=== PATIENT | female | born 1965 | race Caucasian/White ===

== ENCOUNTER 2017-04-12 01:24 | Emergency (ER) | payer OTHER ==
[~2017-04-12] VITALS: Ht 160 cm; Wt 121.6 kg
[2017-04-12 01:47] VITALS: TEMP 36.8; Ht 160 cm; Wt 121.6 kg
[2017-04-12] MEDS ORDERED: ONDANSETRON INJ 2 MG/ML 2 ML VIAL IV STA (01:53)
[2017-04-12] MEDS ORDERED: MoRPHine SULFATE 4 MG/ML 1 ML CARP\\VIAL IV ONE (02:00)
[2017-04-12] MEDS ORDERED: SODIUM CHLORIDE 0.9% 1000ML 1,000 ML IV ONE ×2 (02:00→04:30)
[2017-04-12] MEDS ORDERED: ATEN-173 PO (02:41)
[2017-04-12] MEDS ORDERED: LEVO25TA5 PO (02:41)
[2017-04-12] MEDS ORDERED: SERT50TA PO (02:42)
[2017-04-12] MEDS ORDERED: KETO10TA PO (02:43)
[2017-04-12 02:46] LABS: BASO % 0.4 %; BASO ABS # 0.03 K/uL (0-0.2); COMPLETE YES; EOS % 0.7 %; HEMATOCRIT 39.9 % (37-47); IG% 0.5 %; LYMPH % 8.7 %; LYMPH ABS # 0.74 K/uL (1.2-3.4); MEAN CELL VOLUME 91.7 fL (80-100); MEAN CORPUSCULAR HEMOGLOBIN 31.5 pg (25-34); MEAN CORPUSCULAR HGB CONC 34.3 g/dl (32-36); MONO % 8.4 %; NEUT % 81.3 %; PLATELET COUNT 193 K/uL (130-400); RED BLOOD COUNT 4.35 M/uL (4.2-5.4); WHITE BLOOD COUNT 8.54 K/uL (4.8-10.8)
[2017-04-12 03:04] LABS: BUN/CREATININE RATIO 14.9 (10-20); CALCIUM 8.9 mg/dl (8.5-10.1); CREATININE 0.79 mg/dl (0.60-1.20); POTASSIUM 3.8 mmol/L (3.5-5.1)
[2017-04-12 04:23] LABS: URINE APPEARANCE CLEAR (CLEAR); URINE BILIRUBIN NEG (NEG); URINE COLOR YELLOW; URINE NITRITE NEG (NEG); URINE PH 5.5 (4.5-7.5); URINE SPECIFIC GRAVITY 1.018 (1.000-1.030); UROBILINOGEN NEG (NEG); ZZUR CULT IF INDIC CLEAN CATCH NO
[2017-04-12 04:31] LABS: MANUAL MICROSCOPIC REQUIRED? NO; REVIEW REQ? NO
[2017-04-12] MEDS ORDERED: ONDA4TAB10 SL (04:51)
[2017-04-12] MEDS ORDERED: OXYC1TAB3 PO (04:51)
[2017-04-12] MEDS ORDERED: TAMS0.4C38 PO (04:51)
[2017-04-12] MEDS ORDERED: ONDANSETRON HOME PACK 4MG OD TAB PO ONE (05:00)
[2017-04-12] MEDS ORDERED: OXYCODONE IR HOME PACK PO ONE (05:00)
[2017-04-12 05:10] VITALS: BP 142/77; PULSE 76; O2SAT 97
--- NOTE | 2017-04-12 07:30 | DIAGNOSTIC IMAGING REPORT ---
ABD/PELVIS NO IV OR ORAL CONT HISTORY: 52 years-old Female low abd pain acute lower abdominal pain with history of kidney stones. COMPARISON: None available TECHNIQUE: Multiple axial CT images of the abdomen and pelvis were obtained without contrast. A dose lowering technique was used consistent with the principals of HAMLET. FINDINGS: The lung bases are generally clear. There is no pneumoperitoneum. Imaged inferior cardiac chambers are unremarkable. There is hepatomegaly with hepatic steatosis. The spleen, gallbladder, pancreas and right adrenal gland are unremarkable. There is nodular thickening of the left adrenal gland suggesting hyperplasia. There is a 2 mm calcification within the left hemipelvis seen on image 356 of series 3 which is in close proximity to the distal left ureter. No significant hydroureter or hydronephrosis identified. This appears to be slightly anterior to the distal left ureter favoring a phlebolith. No definite renal calculi or hydronephrosis identified. There are additional phleboliths of the pelvis noted. Uterus and adnexa are unremarkable. Abdominal aorta is normal in course and caliber. No bulky retroperitoneal adenopathy. No bowel obstruction or focal bowel wall thickening. Colonic diverticulosis without acute diverticulitis. The appendix appears normal. Diastases recti noted. Small fat filled periumbilical hernia is noted, diastases 1.6 cm. Patient obesity is noted. Soft tissues are otherwise unremarkable. The bones appear intact. Multilevel degenerative changes are present. Endplate irregularity and sclerosis at L4-L5 is likely degenerative related. IMPRESSION: 1. 2 mm calcification of the left hemipelvis in close proximity to the distal left ureter is favored to reflect a phlebolith with a distal left ureteral calculus thought to be less likely as there is no evidence of associated obstructive uropathy or inflammatory stranding. 2. No definite renal calculi or hydronephrosis. 3. Normal appendix. 4. Colonic diverticulosis without diverticulitis. 5. Endplate irregularity and sclerosis at L4-L5 is favored to reflect degenerative changes. The above report was generated using voice recognition software. It may contain grammatical, syntax or spelling errors. Electronically signed by: Carlos Harrell M.D. 04/12/2017 7:29 AM Dictated Date/Time: 04/12/2017 7:22 AM
--- NOTE | 2017-04-13 07:32 | EMERGENCY ROOM VISIT NOTE ---
History First contact with patient: 01:42 Chief Complaint: ABDOMINAL PAIN Stated Complaint: ABDOMINAL PAIN Nursing Triage Summary: woke up tonight with severe abd pain, more right side than left. also had N/V/D and period of dizziness. states she felt slightly better after BM before ems arrived. states she's had food poisoning before and this feels similar History of Present Illness The patient is a 52 year old female who presents to the Emergency Room with complaints of left-sided abdominal pain, nausea, and vomiting that began acutely tonight. The patient states that her pain woke her from sleep. She did have a normal bowel movement after waking up and states this did improve her symptoms. The patient states her pain is a dull 5/10 with episodes that increase to an 8/10. She has not taken anything [id number] for her symptoms. She has not had similar episodes in the past. She does arrive via EMS. Review of Systems More than 10 systems were reviewed and otherwise negative with the exception of history of present illness. Past Medical/Surgical History No pertinent chronic medical disease Family History No pertinent family history Social History Smoking Status: Never Smoker Housing Status: lives with family Current/Historical Medications Scheduled Atenolol (Tenormin), 25 MG PO DAILY Levothyroxine Sodium (Levothyroxine Sodium), Unknown Dose PO DAILY Ondasetron Odt (Zofran Odt), 4 MG SL Q6H Oxycodone Immediate Rel Tab (Roxicodone Ir), 1-2 TAB PO Q6 Sertraline (Zoloft), 50 MG PO DAILY Tamsulosin Hcl (Flomax), 0.4 MG PO DAILY Scheduled PRN Ketorolac (Toradol), 10 MG PO DIRECTED PRN for Pain Allergies Uncoded Allergies: SULFA (Allergy, Unknown, unknown, 04/12/17) Physical Exam Vital Signs Date Time Temp Pulse Resp B/P (MAP) Pulse Ox O2 Delivery O2 Flow Rate FiO2 04/12/17 05:10 76 20 142/77 97 Room Air 04/12/17 04:25 94 04/12/17 04:15 82 15 93 Room Air 04/12/17 03:45 86 17 96 04/12/17 03:31 137/75 04/12/17 03:30 85 16 96 04/12/17 03:28 Nasal Cannula 2.0 04/12/17 03:28 97 Nasal Cannula 2.0 04/12/17 03:25 90 18 04/12/17 03:24 89 19 87 Room Air 04/12/17 03:19 139/80 04/12/17 01:47 36.8 93 18 134/76 95 Room Air 04/12/17 01:39 92 16 94 Room Air 04/12/17 01:35 91 04/12/17 01:27 134/76 Physical Exam VITALS: Vitals are noted on the nurse's note and reviewed by myself. Vital signs stable. GENERAL: Well-developed, well-nourished, white female, who is in no acute distress and resting comfortably. Patient is cooperative with the examination. HEART: Regular rate and rhythm without murmurs gallops or rubs. LUNGS: Clear to auscultation bilaterally without wheezes, rales or rhonchi. No retractions or accessory muscle use. ABDOMEN: Positive normal bowel sounds x 4. Soft, nontender, without masses or organomegaly. No guarding or rebound tenderness. No CVA tenderness. MUSCULOSKELETAL: No muscle atrophy, erythema, or edema noted. Full range of motion without joint tenderness in all extremities. NEURO: Patient was alert and oriented to person place and time. CN II through XII grossly intact. Medical Decision & Procedures ER Provider Diagnostic Interpretation: Preliminary Findings Only See Final Report For Complete Findings CT ABDOMEN & PELVIS Without Contrast: Impression: 2 mm calculus within distal left ureter (2-72). No significant hydroureteronephrosis. Additional findings: Lower thorax is unremarkable. Hepatic steatosis. Gallbladder, spleen, pancreas and adrenal glands are unremarkable. Kidneys and urinary bladder are unremarkable. Uterus and adnexa are unremarkable. Appendix is unremarkable. Noninflamed colonic diverticulosis. No acute osseous abnormality. Laboratory Results 04/12/17 02:14 Red Blood Count 4.35, Mean Corpuscular Volume 91.7, Mean Corpuscular Hemoglobin 31.5, Mean Corpuscular Hemoglobin Concent 34.3, Mean Platelet Volume 11.0, Neutrophils (%) (Auto) 81.3, Lymphocytes (%) (Auto) 8.7, Monocytes (%) (Auto) 8.4, Eosinophils (%) (Auto) 0.7, Basophils (%) (Auto) 0.4, Neutrophils # (Auto) 6.95, Lymphocytes # (Auto) 0.74, Monocytes # (Auto) 0.72, Eosinophils # (Auto) 0.06, Basophils # (Auto) 0.03 04/12/17 02:14 Test 04/12/17 02:14 04/12/17 04:05 White Blood Count 8.54 K/uL (4.8-10.8) Red Blood Count 4.35 M/uL (4.2-5.4) Hemoglobin 13.7 g/dL (12.0-16.0) Hematocrit 39.9 % (37-47) Mean Corpuscular Volume 91.7 fL (80-100) Mean Corpuscular Hemoglobin 31.5 pg (25-34) Mean Corpuscular Hemoglobin Concent 34.3 g/dl (32-36) Platelet Count 193 K/uL (130-400) Mean Platelet Volume 11.0 fL (7.4-10.4) Neutrophils (%) (Auto) 81.3 % Lymphocytes (%) (Auto) 8.7 % Monocytes (%) (Auto) 8.4 % Eosinophils (%) (Auto) 0.7 % Basophils (%) (Auto) 0.4 % Neutrophils # (Auto) 6.95 K/uL (1.4-6.5) Lymphocytes # (Auto) 0.74 K/uL (1.2-3.4) Monocytes # (Auto) 0.72 K/uL (0.11-0.59) Eosinophils # (Auto) 0.06 K/uL (0-0.5) Basophils # (Auto) 0.03 K/uL (0-0.2) RDW Standard Deviation 43.3 fL (36.4-46.3) RDW Coefficient of Variation 12.9 % (11.5-14.5) Immature Granulocyte % (Auto) 0.5 % Immature Granulocyte # (Auto) 0.04 K/uL (0.00-0.02) Anion Gap 9.0 mmol/L (3-11) Est Creatinine Clear Calc Drug Dose 102.9 ml/min Estimated GFR () 98.4 Estimated GFR (Non- 84.9 BUN/Creatinine Ratio 14.9 (10-20) Calcium Level 8.9 mg/dl (8.5-10.1) Magnesium Level 2.0 mg/dl (1.8-2.4) Total Bilirubin 0.6 mg/dl (0.2-1) Aspartate Amino Transf (AST/SGOT) 12 U/L (15-37) Alanine Aminotransferase (ALT/SGPT) 25 U/L (12-78) Alkaline Phosphatase 62 U/L (45-117) Total Protein 6.7 gm/dl (6.4-8.2) Albumin 3.3 gm/dl (3.4-5.0) Globulin 3.4 gm/dl (2.5-4.0) Albumin/Globulin Ratio 1.0 (0.9-2) Lipase 150 U/L (73-393) Urine Color YELLOW Urine Appearance CLEAR (CLEAR) Urine pH 5.5 (4.5-7.5) Urine Specific [place] 1.018 (1.000-1.030) Urine Protein NEG (NEG) Urine Glucose (UA) NEG (NEG) Urine Ketones TRACE (NEG) Urine Occult Blood NEG (NEG) Urine Nitrite NEG (NEG) Urine Bilirubin NEG (NEG) Urine Urobilinogen NEG (NEG) Urine Leukocyte Esterase NEG (NEG) Medications Administered Medications (Trade) Dose Ordered Sig/[place] Route Start Time Stop Time Status Last Admin Dose Admin Sodium Chloride 1,000 ml @ 999 mls/hr Q1H1M ONCE IV 04/12/17 02:00 04/12/17 03:00 DC 04/12/17 02:17 999 MLS/HR Morphine Sulfate (MoRPHine SULFATE INJ) 4 mg NOW ONCE IV 04/12/17 02:00 04/12/17 02:01 DC 04/12/17 02:17 4 MG Ondansetron HCl (Zofran Inj) 4 mg NOW STAT IV 04/12/17 01:53 04/12/17 01:54 DC 04/12/17 02:17 4 MG Sodium Chloride 1,000 ml @ 999 mls/hr Q1H1M ONCE IV 04/12/17 04:30 04/12/17 05:30 DC 04/12/17 04:24 999 MLS/HR Oxycodone HCl (Roxicodone Immediate Rel 5MG Home Pack) 1 homepack UD ONCE PO 04/12/17 05:00 04/12/17 05:01 DC 04/12/17 05:10 1 HOMEPACK Ondansetron HCl (ZOFRAN ODT 4MG Home Pack) 1 homepack UD ONCE PO 04/12/17 05:00 04/12/17 05:01 DC 04/12/17 05:[address] [facility] ED Course Physical exam and history were performed. Nursing notes, EMR, and Medication List were personally reviewed. Patient appears to have back pain that woke her from sleep tonight. On examination she does not appear toxic. IV access was established and labs are obtained. She was hydrated and medicated as above. Due to the acute nature of her symptoms I did elect to perform a CT scan. The patient's blood work is as above and was reviewed. She does not have a significantly elevated white blood cell count, gross anemia, bandemia, or significant electrolyte imbalance. Lipase and transaminases are nondiagnostic. Urine is without obvious infection with culture pending. CT scan is as above and appears to show a distal 2 mm stone. This would correlate with the patient' s discomfort. The patient felt much better after medication and seems well for discharge home. She presented small and distal stone on CT scan, and this should pass without further intervention. She will be given a course of oxycodone, Zofran, and Flomax. She is to follow with urology. She was otherwise invited back to the ER with any new, worsening, or concerning symptoms. The chart was completed utilizing [email or web address] Speech Voice Recognition Software. Grammatical errors, random word insertions, pronoun errors, and incomplete sentences are an occasional consequence of this system due to software limitations, ambient noise, and hardware issues. Any formal questions or concerns about the content, text, or information contained within the body of this dictation should be directly addressed to the provider for clarification. . Medical Decision Differential diagnosis: Etiologies such as renal colic, appendicitis, diverticulitis, mesenteric ischemia, aortic pathology, infections, inflammatory bowel disease, PUD, biliary pathology, UTI, as well as others were entertained. Impression Primary Impression: Ureteral calculus, left Departure Information Dispostion Home / Self-Care Condition GOOD Prescriptions Tamsulosin Hcl (FLOMAX) 0.4 Mg Cap 0.4 MG PO DAILY for 7 Days, #7 CAP Prov: Jose Guadalupe Lee PA-C 04/12/17 Ondasetron Odt (ZOFRAN ODT) 4 Mg Tab 4 MG SL Q6H for Nausea, #12 TAB Prov: Jose Guadalupe Lee PA-C 04/12/17 Oxycodone Immediate Rel Tab (ROXICODONE IR) 5 Mg Tab 1-2 TAB PO Q6 for Pain, #24 TAB Prov: Jose Guadalupe Lee PA-C 04/12/17 Referrals Wendy Emery MD Forms Call Back Authorization, HOME CARE DOCUMENTATION FORM, IMPORTANT VISIT INFORMATION Patient Instructions Kidney Stones - [facility], [facility], [facility] Additional Instructions You were seen and evaluated today on an emergency basis only. This is not a substitute for, or an effort to provide, complete comprehensive medical care. It is not possible to recognize and treat all injuries or illnesses in a single emergency department visit. For this reason it is recommended that you followup with Urology, Dr Emery, for ongoing care and evaluation. For baseline pain relief you may alternate ibuprofen and acetaminophen every 4 hours for pain control. Take 600 mg ibuprofen (Advil) and then 4 hours later take 1000 mg acetaminophen (Tylenol). Do not take more than 3000 mg acetaminophen in a single day. Oxycodone (OxyIR) 5mg: Take ONE pill every SIX hours for breakthrough pain. Avoid alcohol, operating machinery or dangerous equipment, working on ladders or roofs, DRIVING, or situations where being under the influence may be dangerous. It is recommended to use an [id number] stool softener such as Colace, 100mg twice daily while taking this medication to avoid constipation. Zofran 1 tablet every 6 hrs as needed for nausea. Take Flomax once daily as prescribed You are welcome to return to the emergency department anytime with new, worsening, or concerning symptoms.
== END 2017-04-12 05:24 | disposition home or self-care (01) ==
LOC: C.EDA 01:27
DX: N20.1 Calculus of ureter (principal)